=== PATIENT | male | born 1975 | race Caucasian/White ===

== ENCOUNTER → 2021-08-03 | Outpatient (CLI) | payer BC ==
[~2021-08-03] MED LIST: FENO134C PO; HYDR12.58 PO; IBUP-1060 PO; OLME5TAB6 PO; OMEP20CA16 PO
--- NOTE | 2021-08-03 10:31 | PDOC1 ---
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 Patient reports pain is increasing in the low back into the lower extremities with radiating pain into the bilateral lower extremities posterior gluteus into the right posterior thigh posterior calf lateral thigh and calf as well more on the right side than the left patient reports is constant shooting radiating primarily disturbing sleep is worse at the end of his working day. Patient reports it wakes him to sleep least 2-4 times a night does not affect his bowel bladder control does affect his ability walk otherwise not use any assistive devices. Patient has had physical therapy several times over the past 2 years and is still doing exercises related with this also chiropractic treatment in the last 3 years as well patient is been taking hydrocodone as well as ibuprofen both do decrease the pain by about 30% but ibuprofen is upsetting his stomach and is not currently taking hydrocodone as he does not like the way it makes him feel. Patient reports his disability rating from 0-10, 10 being the worst, is a 6 with family home responsibilities 8 with recreation 5 with social activity 7 with occupation and sexual behavior 5 with self-care activities and 9 with life support activities specially disturbing sleep. Patient did have an MRI scan lumbar spine showing L4-5 mild degenerative changes and mild annular disc bulge with moderate facet arthropathy left greater than right is a small synovial cyst lateral to the left facet joint with moderate left foraminal narrowing, L5-S1 shows anterolisthesis diffuse posterior disc bulging with moderate facet arthropathy left greater than right and mild left foraminal narrowing. Patient reports no loss of motor function with significant fatigability with activity especially standing and walking. PAST MEDICAL HISTORY: PMH: Hypertension, kidney stones PREVIOUS SURGERIES: Past Surgical Hx: Tonsillectomy CURRENT MEDICATIONS: Current Meds: Active Scripts Medications Dose Route/Sig Max Daily Dose Days Date Category Ibuprofen 800 Mg Tablet 800 Mg PO PRN Q6HRS PRN 08/03/21 Reported Olmesartan Medoxomil 5 Mg Tablet Unknown Dose PO DAILY 08/03/21 Reported Hydrochlorothiazide Tablet (Hydrochlorothiazide) 12.5 Mg Tablet Unknown Dose PO DAILY 08/03/21 Reported Omeprazole 20 Mg Capsule.dr Unknown Dose PO DAILY 08/03/21 Reported Fenofibrate (Fenofibrate,Micronized) 134 Mg Capsule Unknown Dose PO DAILY 08/03/21 Reported ALLERGIES; Allergies: Coded Allergies: No Known Drug Allergies (Unverified , 08/03/21) FAMILY HISTORY: Family Hx: Diabetes, lung cancer, skin cancer, heart disease SOCIAL HISTORY: Social Hx: Patient is alcohol only occasionally does not smoke or use any illegal illicit or recreational drugs is lives with spouse has 2 children living home lives locally in [facility], patient works as a conveyor maintenance mechanic for [employer] REVIEW OF SYSTEMS: ROS: Positive for those items mentioned in history of present illness, all systems are reviewed, otherwise negative ,and are complete full and well-documented on patient's chart. PHYSICAL EXAM: VS: Blood pressure is 141/93 pulse 69 respirations 18 temperature 90.2 F height is 6 foot weight 257 pounds PE: PHYSICAL EXAMINATION: GENERAL: The patient is awake, alert, oriented, appropriate, very pleasant in demeanor. HEENT: Shows normocephalic, atraumatic. Extraocular movements are intact and symmetrical. Oral cavity: Mucous membranes moist and pink. Dentition is intact. NECK: Shows anterior throat supple without palpable lymphadenopathy noted. Swallow reflex symmetrical. CHEST: Shows normal on inspection. Breath sounds are clear bilaterally, distant no rales rhonchi or wheezes auscultated. HEART: Shows S1, S2 clear. No murmurs auscultated. ABDOMEN: Soft, nontender, nondistended, obese. No palpable organomegaly is noted. No rebound or guarding demonstrated. BACK: Shows spine grossly in the midline. Normal-appearing cervical lordotic curvature. There is slightly increased thoracic kyphosis, some minor flattening of the lumbar lordotic curvature. Lumbar paraspinous muscles show symmetrical on inspection, on palpation shows some moderate tenderness diffusely throughout the upper, middle and lower distribution of the paraspinous muscles bilaterally and also into the lower thoracic paraspinous musculature, firm and tender, but without specific trigger points, without radiation of pain. The patient has good rotational motion of the lumbar spine, both laterally as well as extension and flexion without significant difficulty. No tenderness over the spinous processes, sacrum or sacroiliac regions. EXTREMITIES: Lower extremities show deep tendon reflexes 5 in the patellar and tendo calcaneus tendons. Motor exam is 4 on a scale of 5 with right dorsiflexion, extension, quadriceps and hamstring flexion and 5/5 on the left. Peripheral pulses are 1+ posterior tibial. No peripheral edema is noted bilaterally. Lower extremities are warm and dry to touch, equal in color and appearance. Straight leg raise noted to be positive on the right about 45 degrees, left side is negative. Gaenslen's and Seth's maneuvers are negative bilaterally as well. The patient is able to stand, stand on his toes that significant difficulty loss of balance, walks with a slight favoring gait does appear to favor the right lower extremity mildly with a slight limp but does not use any assistive devices ambulate. SKIN: Shows warm and dry, good turgor. No edema. No sores, rashes or bruising throughout. IMPRESSION: Impression: 45-year-old male with long history of low back pain right greater than left lower extremity pain in a radicular fashion following an L5-S1 dermatomal distribution. MRI scan lumbar spine as noted Hypertension Plan: Options were discussed with the patient including conservative medical management versus continued physical therapies continue chiropractic treatments as well as interventional techniques. As patient has done physical therapy and is still doing the exercises and has done chiropractic multiple times would like to pursue interventional techniques. We discussed a lumbar epidural steroid injections description as well as anatomical models to describe the procedure. Patient will wait for preauthorization with his insurance provider, once pain we will proceed with a translaminar approach L5-S1 level lumbar epidural steroid injection with fluoroscopic guidance at that time. In the meantime, will call Medrol Dosepak in for patient, patient was given instructions well side effects aware with the medication. MICK ARAUJO MD Aug 03, 2021 10:31
== END ==
LOC: PNCL 09:25
PROVIDERS: ATTEND Anesthesiology
DX: M54.5 Low back pain (principal); M79.662 Pain in left lower leg; M79.661 Pain in right lower leg; I10 Essential (primary) hypertension; Z87.442 Personal history of urinary calculi; Z79.899 Other long term (current) drug therapy; Z98.890 Other specified postprocedural states
CPT/HCPCS: G0463

== ENCOUNTER → 2021-08-17 | Outpatient (CLI) | payer BC ==
[~2021-08-17] MED LIST changes: +IOHEXOL 180 MG/ML 10 ML VIAL. ONE; +methylPREDNISolone ACETATE 40 MG/ML VIAL. ONE; +methylPREDNISolone ACETATE 80 MG/ML VIAL. ONE
--- NOTE | 2021-08-17 10:07 | PDOC ---
Progress Note - Pain Clinic Date of Service: DOS: DATE: 08/17/21 TIME: 10:05 Diagnosis: Dx: Lumbar radiculopathy with lumbar degenerative disc disease History or Present Illness: HPI: 45-year-old male returns for follow-up status post evaluation reporting significant pain in the low back and right lower extremity posterior gluteus posterior thigh posterior calf worse with walking standing changing positions better with sitting or laying down generally wakes him from sleep least once or twice a night however patient reports is aching sharp tight shooting in the back stabbing in the right lower extremity and shooting radiating can be constant with activity patient reports is better with sitting or laying down worse with walking standing is noted. Patient rates as a 9 on scale 10 is worse over the past week 8 on average for its least and is an 8 today patient ports a stabbing aching sharp tight and dull patient reports no loss of motor function no bowel or bladder incontinence. Physical Exam: VS: Blood pressure is 137/96 pulse 75 respiration 16 temperature 98.1 F height 6 foot weight is 261 pounds PE: PHYSICAL EXAMINATION: GENERAL: The patient is awake, alert, oriented, appropriate, very pleasant in demeanor HEENT: Shows normocephalic, atraumatic. Extraocular movements are intact and symmetrical. Oral cavity: Mucous membranes moist and pink. NECK: Shows anterior throat supple without palpable lymphadenopathy noted. Swallow reflex symmetrical. CHEST: Shows normal on inspection. Breath sounds are clear bilaterally, no rales or rhonchi. HEART: Shows S1, S2 clear. No murmurs auscultated. ABDOMEN: Soft, nontender, nondistended, obese. No palpable organomegaly is noted. BACK: Shows spine grossly in the midline. Normal-appearing cervical lordotic curvature. There is slightly increased thoracic kyphosis, some minor flattening of the lumbar lordotic curvature. Lumbar paraspinous muscles show symmetrical on inspection, on palpation shows some moderate tenderness diffusely throughout the upper, middle and lower distribution of the paraspinous muscles without specific trigger points, without radiation of pain. The patient has good rotational motion of the lumbar spine, both laterally as well as extension and flexion without significant difficulty. EXTREMITIES: Lower extremities show deep tendon reflexes 2+ in the patellar and tendo calcaneus tendons. Motor exam is 4 on a scale of 5 with right dorsiflexion, extension, quadriceps and hamstring flexion and 5/5 on the left. Peripheral pulses are 1 posterior tibial. No peripheral edema is noted bilaterally. Lower extremities are warm and dry to touch, equal in color and appearance. SKIN: Shows warm and dry, good turgor. No edema. No sores, rashes or bruising throughout. Procedure: Procedure: Options discussed with patient. Patient chart reviews his current medication regimen updated current review of systems updated today as well. We will proceed with a lumbar epidural steroid injection today with fluoroscopic guidance. Risks were discussed including but not limited to: Bleeding, infection, possibility of epidural hematoma and subsequent neurological compromise, dural puncture, headaches, spinal cord and/or nerve damage, side effects of steroid medication, and poor results regarding pain control. Patient understands and wished to proceed. Patient return to clinic in approximate 3 weeks for follow-up, was counseled return appointment to go and side effects to be aware of. Medication Injected: Med Injected: Procedure is lumbar epidural steroid injection under local anesthetic using s terile prep and drape at the L5-S1 level using C-arm fluoroscopic guidance in both AP and lateral views medications injected is 120 mg Depo-Medrol +10mL preservative-free normal saline and 2 mL contrast- condition at discharge is stable patient tolerated procedure well had no complications. Condition at Discharge: Condition at Discharge: Condition at discharge stable, paced tolerated procedure well and had no complications. MICK ARAUJO MD Aug 17, 2021 10:07
--- NOTE | 2021-08-17 10:08 | PDOC4 ---
Procedure Note: ICD 10 Code: ICD 10 Code: M54.17 M54.87 Procedure Note: Patient was consented for lumbar epidural steroid injection with fluoroscopic guidance. Risks were discussed including but not limited to: Bleeding, infection, possibility of epidural hematoma and subsequent neurological compromise, dural puncture, headaches, spinal cord and/or nerve damage, side effects of steroid medication, and poor results regarding pain control. Patient understands and wished to proceed. Procedure is lumbar epidural steroid injection under local anesthetic using sterile prep and drape at the L5-S1 level using C-arm fluoroscopic guidance in both AP and lateral views medications injected is 120 mg Depo-Medrol +10mL preservative-free normal saline and 2 mL contrast- condition at discharge is stable patient tolerated procedure well had no complications. MICK ARAUJO MD Aug 17, 2021 10:08
== END | disposition home or self-care (01) ==
LOC: PNCL 09:09
PROVIDERS: ATTEND Anesthesiology
DX: M51.16 Intervertebral disc disorders with radiculopathy, lumbar region (principal); Z79.899 Other long term (current) drug therapy
CPT/HCPCS: 62323; J1030; J1040; Q9965

== ENCOUNTER → 2021-10-01 | Outpatient (CLI) | payer BC ==
--- NOTE | 2021-10-01 08:39 | PDOC ---
Progress Note - Pain Clinic Date of Service: DOS: DATE: 10/01/21 TIME: 08:35 Diagnosis: Dx: Lumbar radiculopathy with lumbar degenerative disc disease History or Present Illness: HPI: 46-year-old male returns for follow-up status post lumbar epidural steroid injection x1. Patient reports about 50% improvement in the low back pain and right lower extremity pain is still helping patient reports the pain is still decreased and has been increasing activity greater ease and comfort walking with greater distances doing household activities work activities travel with greater ease and sleeping better at night patient reports not awaken from sleep night patient reports new pain in the left side of the low back and posterior gluteus but not into the leg patient reports that this was not present on his last visit is noticed this mainly when changing positions or standing for too long but is mostly noticeable on the right side with radiation of the right leg posterior gluteus posterior thigh patient reports cramping aching tight also tight on the left side patient reports a 7 on scale 10 is worse over the past week 5 on average for its least is a 5 today. Patient reports no bowel or bladder incontinence. Physical Exam: VS: Blood pressure is 126/91 pulse 81 respirations 18 temperature 98.3 F height 6 foot weight is 263 pounds PE: PHYSICAL EXAMINATION: GENERAL: The patient is awake, alert, oriented, appropriate, very pleasant in demeanor HEENT: Shows normocephalic, atraumatic. Extraocular movements are intact and symmetrical. Oral cavity: Mucous membranes moist and pink. Dentition is intact. NECK: Shows anterior throat supple without palpable lymphadenopathy noted. Swallow reflex symmetrical. CHEST: Shows normal on inspection. Breath sounds are clear bilaterally. HEART: Shows S1, S2 clear. No murmurs auscultated. ABDOMEN: Soft, nontender, nondistended. No palpable organomegaly is noted. BACK: Shows spine grossly in the midline. Normal-appearing cervical lordotic curvature. There is slightly increased thoracic kyphosis, some flattening of the lumbar lordotic curvature. Lumbar paraspinous muscles show symmetrical on inspection, on palpation shows some moderate tenderness diffusely throughout the upper, middle and lower distribution of the paraspinous muscles without specific trigger points, without radiation of pain. The patient has good rotational motion of the lumbar spine, both laterally as well as extension and flexion without significant difficulty. EXTREMITIES: Lower extremities show deep tendon reflexes 2+ in the patellar and tendo calcaneus tendons. Motor exam is 4 on a scale of 5 with right dorsiflexion, extension, quadriceps and hamstring flexion and 5/5 on the left. Peripheral pulses are 1+ posterior tibial. No peripheral edema is noted bilaterally. Lower extremities are warm and dry to touch, equal in color and appearance. SKIN: Shows warm and dry, good turgor. No edema. No sores, rashes or bruising throughout. Procedure: Procedure: Options were discussed with the patient. Patient chart reviews his current medication regimen updated current review of systems updated today as well. We will proceed with a lumbar epidural steroid injection stable fluoroscopic guidance. Risks were discussed including but not limited to: Bleeding, infection, possibility of epidural hematoma and subsequent neurological co mpromise, dural puncture, headaches, spinal cord and/or nerve damage, side effects of steroid medication, and poor results regarding pain control. Patient understands and wished to proceed. Patient will return to the clinic in approximate 2 weeks for follow-up, was counseled return appointment, activity level, and side effects to be aware of. Medication Injected: Med Injected: Procedure is lumbar epidural steroid injection under local anesthetic using sterile prep and drape at the L5-S1 level using C-arm fluoroscopic guidance in both AP and lateral views medications injected is 120 mg Depo-Medrol +10mL preservative-free normal saline and 2 mL contrast- condition at discharge is stable patient tolerated procedure well had no complications. Condition at Discharge: Condition at Discharge: Condition discharge stable, patient tolerated the procedure well and had no complications. MICK ARAUJO MD Oct 01, 2021 08:39
--- NOTE | 2021-10-01 08:39 | PDOC4 ---
Procedure Note: ICD 10 Code: ICD 10 Code: M54.17 M51.87 Procedure Note: Patient was consented for lumbar epidural steroid injection with fluoroscopic guidance. Risks were discussed including but not limited to: Bleeding, infection, possibility of epidural hematoma and subsequent neurological compromise, dural puncture, headaches, spinal cord and/or nerve damage, side effects of steroid medication, and poor results regarding pain control. Patient understands and wished to proceed. Procedure is lumbar epidural steroid injection under local anesthetic using sterile prep and drape at the L5-S1 level using C-arm fluoroscopic guidance in both AP and lateral views medications injected is 120 mg Depo-Medrol +10mL preservative-free normal saline and 2 mL contrast- condition at discharge is stable patient tolerated procedure well had no complications. MICK ARAUJO MD Oct 01, 2021 08:39
== END | disposition home or self-care (01) ==
LOC: PNCL 08:08
PROVIDERS: ATTEND Anesthesiology
DX: M51.16 Intervertebral disc disorders with radiculopathy, lumbar region (principal); Z79.899 Other long term (current) drug therapy
CPT/HCPCS: 62323; J1030; J1040; Q9965